=== PATIENT | male | born 1970 | race Caucasian/White ===

== ENCOUNTER 2017-11-06 10:42 | Emergency (ER) ==
[2017-11-06 10:50] VITALS: BP 142/80; TEMP 99.3; BMI 21.2
--- NOTE | 2017-11-06 11:47 | DI ---
EXAM: Chest two views HISTORY: Cough COMPARISON: 06/09/2017 TECHNIQUE: Two views of the chest were performed FINDINGS: Left-sided cardiac pacer. The lungs are clear. Lungs are hyperinflated. There is no pleural effusion or pneumothorax. The heart is normal in size. The mediastinal contour is normal, noting a therosclerosis. There are no acute abnormalities of the bones. IMPRESSION: 1. No acute cardiopulmonary process. 2. Hyperinflated lungs suggest chronic obstructive pulmonary disease.
--- NOTE | 2017-11-06 12:25 | ED.PDOC ---
General ED Provider: Dr. ZIYAD KRAMER Chief Complaint: Non-specific Complaint Stated Complaint: cough, congestion Time Seen by Physician: 11:00 Mode of Arrival: Walk-In Information Source: Patient Exam Limitations: No limitations Nursing and Triage Documentation Reviewed and Agree: Yes Reviewed sepsis parameters & appropriate labs ordered?: Yes (seen with harini) System Inflammatory Response Syndrome: Not Applicable Sepsis Protocol: For patient's 13 years and over: Temp is 96.8 and below OR 101 and greater Pulse >90 BPM Resp >20/minute Acutely Altered Mental Status Are patient's symptoms suggestive of a new infection, such as: -Pneumonia -Skin, Soft Tissue -Endocarditis -UTI -Bone, Joint Infection -Implantable Device -Acute Abdominal Infection -Wound Infection -Meningitis -Blood Stream Catheter Infection -Unknown System Inflammatory Response Syndrome: Not Applicable Respiratory Complaint Exam - Respiratory Complaint/Exam Onset/Duration: flu like sympx 2 days Symptoms Are: Resolved Timing: Intermittent Current Severity: Mild Location: Nose, Throat, Chest Character: Reports: Non-productive cough Aggravating: Reports: None Associated Signs and Symptoms: Reports: Nasal congestion, Sore throat. Denies: Rapid breathing, Dyspnea, Fever, Chills, Chest pain, Pleuritic chest pain, Wheezing, Hemoptysis, Dizziness, Calf pain, Calf swelling, Edema, URI, Hoarseness, Sinus discomfort, Vomiting, Weight loss, Decreased oral intake, Increased thirst, Increased appetite, Increased urination Related History: Reports: Similar episode History of Healthcare-Acquired Pneumonia: No Related Surgical History: Reports: None Pulmonary Embolism Risk Factors: None Cardiac Risk Factors: Reports: None Pseudomonas Risk Factors: Reports: None Tuberculosis Risk Factors: Reports: None Status Asthmaticus Risk Factors: Reports: None Home Oxygen Use: No Recent Stress Test: No Recent Echo/LV Function: No Current Antibiotic Use: No Current Asthma Medication Use: No Respiratory Distress: None Inadequate Respiratory Effort: No Dysphagia Present: No Stridor Present: No JVD Present: No Accessory Muscle Use: No Retractions: Not Present Grunting Respirations: No Kussmaul Respirations: No Differential Diagnoses: Bronchitis Review of Systems - Review Of Systems Constitutional: Reports: No symptoms Eyes: Reports: No symptoms Ears, Nose, Mouth, Throat: Reports: No symptoms Respiratory: Reports: Cough Cardiac: Reports: No symptoms GI: Reports: No symptoms : Reports: No symptoms Musculoskeletal: Reports: No symptoms Skin: Reports: No symptoms Neurological: Reports: No symptoms Endocrine: Reports: No symptoms Hematologic/Lymphatic: Reports: No symptoms All Other Systems: Reviewed and Negative Past Medical History - Past Medical History Previously Healthy: Yes Endocrine: Reports: None Cardiovascular: Reports: None Respiratory: Reports: None, COPD Hematological: Reports: None Gastrointestinal: Reports: None Genitourinary: Reports: None Neuro/Psych: Reports: None Musculoskeletal: Reports: None Cancer: Reports: None - Surgical History General Surgical History: Reports: None - Family History Family History: Reports: None - Social History Smoking Status: Current every day smoker, Heavy tobacco smoker Hx Substance Use: No Alcohol Screening: Occasionally Physical Exam - Physical Exam Appearance: Well-appearing, No pain distress, Well-nourished Eyes: CHRISTIE, EOMI, Conjunctiva clear ENT: Ears normal, Nose normal, Oropharynx normal Respiratory: Rhonchi Cardiovascular: RRR, Pulses normal, No rub, No murmur GI/: Soft, Nontender, No masses, Bowel sounds normal, No Organomegaly Musculoskeletal: Normal strength, ROM intact, No edema, No calf tenderness Skin: Warm, Dry, Normal color Neurological: Sensation intact, Motor intact, Reflexes intact, Cranial nerves intact, Alert, Oriented Psychiatric: Affect appropriate, Mood appropriate Critical Care Note - Critical Care Note Total Time (mins): 0 Course - Course Orders, Labs, Meds: Lab Review 11/06/17 11:08 Influenza A (Rapid) Negative by naat Influenza B (Rapid) Negative by naat Orders Category Date Time Status FLU A & B RAPID TEST [MOLECULAR FLU A/B] Stat LAB 11/06/17 11:08 Completed MOLECULAR GROUP A STREP Stat LAB 11/06/17 11:08 Completed CHEST, 2 VIEWS PA & LAT Stat RADS 11/06/17 11:21 Completed Vital Signs: Temp Pulse Resp BP Pulse Ox 11/06/17 10:43 99.3 F 79 20 142/80 H 95 Departure - Departure Time of Disposition: 12:23 Disposition: HOME SELF-CARE Discharge Problem: Bronchitis Instructions: Bronchospasm (ED), Acute Bronchitis (ED), How Your Lungs Work (ED ) Condition: Good Pt referred to PMD for follow-up: Yes Additional Instructions: Please call your Family Physician as soon as possible to schedule a follow-up appointment. Allergies/Adverse Reactions: Allergies bee venom protein (honey bee) Adverse Reaction (Verified 11/06/17 10:53) codeine Adverse Reaction (Verified 11/06/17 10:53) Home Medications: Ambulatory Orders Albuterol Sulfate [Proair Hfa] 2 puff IH DIRECTED 11/06/17 Budesonide/Formoterol Fumarate [Symbicort 160-4.5 Mcg Inhaler] 2 puff IH BID 01/19 Sertraline HCl [Zoloft] 50 mg PO DAILY 11/06/17
== END 2017-11-06 12:39 | disposition home or self-care (01) ==
LOC: ED 10:42
DX: J40 Bronchitis, not specified as acute or chronic (principal); F17.210 Nicotine dependence, cigarettes, uncomplicated
CPT/HCPCS: 87502; 87651; 99283